=== PATIENT | male | born 1990 | race Caucasian/White ===

== ENCOUNTER 2019-08-08 09:58 | Emergency (ER) | payer BC | END 2019-08-08 11:14 | disposition home or self-care (01) | LOC: ERS 09:58 | DX: J11.1 Influenza due to unidentified influenza virus with other respiratory manifestations (principal); R11.2 Nausea with vomiting, unspecified; F17.200 Nicotine dependence, unspecified, uncomplicated | CPT/HCPCS: 87804; 99284 ==